=== PATIENT | female | born 1985 | race Hispanic/Latino ===

== ENCOUNTER 2024-02-17 20:39 | Emergency (ER) | payer SELFPAY ==
[~2024-02-17] VITALS: Ht 167.6 cm; Wt 138.8 kg
[~2024-02-17 20:39] MED LIST: FIORICET 50-301 EACH PO; IBUPROFEN600 MG PO; LIFESTYLECOMFO1 EACH TOP; PREDNISONE20 MG PO
[2024-02-17 20:49] VITALS: PULSE 90; RESP 18; TEMP 98.5
[2024-02-17] MEDS ORDERED: PROVERA5 MG PO (21:05)
[2024-02-17] MEDS: LACTATED RINGER'S 1,000 ML INJ ONE (21:26)
[2024-02-17] MEDS ORDERED: BACTRIM 400-801 EACH PO (21:48)
[2024-02-17 22:30] VITALS: BP 156/86; PULSE 88; RESP 18; TEMP 98; O2SAT 97
== END 2024-02-17 22:30 | disposition home or self-care (01) ==
LOC: FSED 20:49
DX: N92.0 Excessive and frequent menstruation with regular cycle (principal); N39.0 Urinary tract infection, site not specified; D64.9 Anemia, unspecified; E66.9 Obesity, unspecified
CPT/HCPCS: 80053; 81003; 81025; 85025; 96360; 99283; J7121